=== PATIENT | female | born 2000 | race Hispanic/Latino ===

== ENCOUNTER 2024-12-18 08:56 | Emergency (ER) | payer OTHER ==
[~2024-12-18] VITALS: Ht 157.5 cm; Wt 76.7 kg
--- OUTSIDE RECORDS SUMMARY | 2024-12-18 09:02 | XMS ---
PreManage Notification: FELICE CONDE Security Senior Javascript Engineer Events No recent Security Events currently on file CRITERIA MET - 6 ED Visits in 6 Months - Group Notification - [facility] - 2 Visits in 30 Days - [facility] - 3 Facilities in 90 Days CARE PROVIDERS Lalo Butler Community Health Worker 09/24/2019-Current PHONE: [phone] -[facility] Dentist: Enginehouse Brakeman [facility] [place] PHONE: [phone] -[place]- Dentist: Enginehouse Brakeman [facility] PHONE: [phone] KEMI HOFF Physician Kindergarten Tutor [facility] PHONE: [phone] Adam Tafoya PA-C Physician Kindergarten Tutor Current PHONE: Unknown [facility] Clinic/Center: [place] [facility] PHONE: [phone] Care Guidelines exist for the following facilities: [facility] ( [facility]10[facility] VISIT COUNT (12 MO.) [address] [facility]. TOTAL 9 NOTE: Visits indicate total known visits. ED/UCC VISIT TRACKING (12 MO.) 12/18/2024 08:56 [facility] [place] [facility] [place] TYPE: Emergency COMPLAINT: - ABDOMINAL PAIN 12/12/2024 23:[address] [facility] [place] TYPE: Emergency DIAGNOSES: - Cannabis use, unspecified, uncomplicated - Nausea with vomiting, unspecified - Type 2 diabetes mellitus with hyperglycemia - Vomiting, unspecified - ABD PAIN, VOMITING 12/12/2024 13:28 [facility] [place]aryl Finn TYPE: Emergency DIAGNOSES: - Epigastric pain - Nausea with vomiting, unspecified - Abdominal Pain - Emesis - Emesis, Abdominal pain 11/29/2024 10:48 [facility] [place] TYPE: Emergency COMPLAINT: - ABDOMINAL PAIN 11/28/2024 17:42 [facility] [place] TYPE: Emergency COMPLAINT: - ABD PAIN DIAGNOSES: - ABD PAIN 11/09/2024 18:12 [facility] [place] TYPE: Emergency DIAGNOSES: - Elevated white blood cell count, unspecified - Epigastric pain - Blood Sugar Problem 09/25/2024 12:19 [facility] [place] TYPE: Emergency DIAGNOSES: - Vomiting, unspecified - VOMITING 06/04/2024 07:47 [facility] [place] TYPE: Emergency DIAGNOSES: - Major depressive disorder, recurrent, moderate - Type 1 diabetes mellitus with other specified complication - general 03/21/2024 06:25 [facility] [place] TYPE: Emergency DIAGNOSES: - Abrasion, right great toe, initial encounter - Local infection of the skin and subcutaneous tissue, unspecified - Type 2 diabetes mellitus with hyperglycemia - LOSS OF FEELING IN FEET DIABETIC PATIENT INPATIENT VISIT TRACKING (12 MO.) No inpatient visits to display in this time frame [email or web address]
[2024-12-18] MEDS ORDERED: INSULIN LI100 UNIT/2 SUB-Q (09:10)
[2024-12-18] MEDS ORDERED: METFORMIN HCL500 M1 PO (09:10)
[2024-12-18] MEDS ORDERED: FLUOXETINE HCL10 MG PO (09:11)
[2024-12-18] MEDS ORDERED: TRAZODONE HCL50 MG PO (09:11)
[2024-12-18] MEDS ORDERED: ondansetron HCL 4 MG/2 ML VIAL IV ONE ×2 (09:30→11:00)
[2024-12-18 09:43] LABS: EOSINOPHILS 0.7 % (0-6); HEMATOCRIT 41.7 % (35.0-50.0); LYMPHOCYTES 30.8 % (24-44); MCH 26.9 (27-36); MCHC 33.6 g/dl (30-36); MONOCYTES 5.6 % (0-12); NEUTROPHILS 61.9 % (39-80); PLATELET COUNT 467 K/uL (140-440); RBC 5.21 M/ul (4.3-5.7); RDW 13.1 (10.5-15.0)
[2024-12-18] MEDS ORDERED: SODIUM CHLORIDE 0.9% 1,000 ML IV PRN (09:45)
[2024-12-18] MEDS ORDERED: diphenhydrAMINE HCL 50 MG/ML VIAL IV ONE ×2 (09:45→11:00)
[2024-12-18 09:59] LABS: ALBUMIN/GLOBULIN RATIO 1.03 (1.1-2.4); ANION GAP 15.5 (7-21); BILIRUBIN, TOTAL 0.3 mg/dL (0.2-1.0); BUN/CREATININE RATIO 5.66 (6.0-28.6); CALCIUM 9.4 mg/dL (8.5-10.1); CREATININE, SERUM 0.53 mg/dL (0.55-1.02); POTASSIUM 3.5 mmol/L (3.5-5.1); PROTEIN, TOTAL 7.9 g/dL (6.4-8.2)
[2024-12-18 10:38] LABS: BILIRUBIN, URINE NEGATIVE (negative); BLOOD/HGB, URINE MODERATE (Negative); KETONE, URINE SMALL (Negative); LEUK ESTERASE, URINE NEGATIVE (negative); NITRITE, URINE NEGATIVE (negative); PH, URINE 6.5 (5-7)
[2024-12-18 10:44] LABS: BACTERIA, URINE NONE SEEN /hpf (negative); CASTS, URINE NONE SEEN \\lpf; COLLECTION TYPE, URINE CLEAN CATCH; CRYSTALS, URINE NONE SEEN (0-1+); EPITHELIAL CELLS, URINE SQUAMOUS 1+ /lpf (0-1+); REFLEX CULTURE, URINE No (No); WHITE BLOOD CELLS, URINE 0-1 /HPF (0-5)
[2024-12-18] MEDS ORDERED: MORPHINE SULFATE 4 MG/ML VIAL IV ONE (11:00)
[2024-12-18] MEDS ORDERED: ONDANSETRON ODT8 MG PO (12:19)
[2024-12-18 12:36] VITALS: BP 158/67
== END 2024-12-18 12:39 | disposition home or self-care (01) ==
LOC: ED 08:56
PROVIDERS: Emergency Medicine
DX: R10.9 Unspecified abdominal pain (principal); E10.9 Type 1 diabetes mellitus without complications; Z79.84 Long term (current) use of oral hypoglycemic drugs; Z79.4 Long term (current) use of insulin
CPT/HCPCS: 36415; 80053; 81001; 83690; 84703; 85025; 96374; 96375; 96376; 99284-25; J1200; J2270; J2405; J7030